=== PATIENT | female | born 1970 | race African-American/Black ===

== ENCOUNTER 2020-11-03 22:59 | Emergency (ER) | payer SELFPAY ==
[2020-11-03 23:18] VITALS: BP 142/104; PULSE 75; RESP 16; TEMP 36.7; O2SAT 98; BMI 29.9
--- NOTE | 2020-11-03 23:35 | ED_ITS ---
HPI - Dental/Oral General: Chief complaint: Dental/Oral Stated complaint: dental pain Time Seen by Provider: 11/03/20 23:29 Source: patient Mode of arrival: ambulatory Limitations: no limitations History of Present Illness: HPI Narrative: Patient is a 50-year-old female who presents to ED today with complaints of a very painful and swollen right lower impacted molar that has been bothering her over the past few days. No fevers or trouble swallowing. MD Complaint: tooth pain Teeth map: 1. Onset (ago): day(s) Duration: constant Severity: severe Relieving factors: nothing Exacerbating factors: nothing Context: history of dental caries Associated symptoms: Reports no associated symptoms; Denies ear or mastoid pain, fever(s) or odynophagia Treatment prior to arrival: topical analgesic and oral analgesic Review of Systems Const: Denies: fever(s), chills, body aches, fatigue or malaise Eyes: Denies: change in vision ENMT: Reports: dental pain; Denies: throat pain, odynophagia, hoarseness, swelling of lips/tongue, bleeding gums or ear or mastoid pain Card: Denies: chest pain GI: Denies: abdominal pain, nausea or vomiting Musc: Denies: neck pain Skin/Breast: Denies: rash Neuro: Denies: headache(s) Physical Exam Const: COMMON NORMALS: no acute distress, average body habitus, patient oriented x3, no limitations, healthy appearing, alert and well nourished HENMT: COMMON NORMALS: normocephalic and atraumatic HEAD & SCALP: normocephalic and atraumatic FACE & SINUS: normal facial exam TEETH & GINGIVA: Yes caries and Yes other (impacted R lower 3rd molar with surrounding gingival and buccal irritation) THROAT: posterior oropharynx normal, tonsils normal and uvula midline Neck/C-Spine: GENERAL: No anterior neck swelling and No submandibular swelling Resp: COMMON NORMALS: normal respiratory effort Neuro: COMMON NORMALS: patient oriented x3 SENSORIUM/ORIENTATION: Yes alert Course Vital Signs: Vital signs: Vital Signs Temperature 98.0 F 11/03/20 23:18 Pulse Rate 75 11/03/20 23:18 Respiratory Rate 16 11/03/20 23:18 Blood Pressure 142/104 11/03/20 23:18 Pulse Oximetry 98 11/03/20 23:18 Discharge Plan Discharge Patient Disposition: Home Clinical Impression: Impacted third molar tooth Condition: Stable Prescriptions: New penicillin V potassium 500 mg tablet 500 mg PO Q8H 7 Days Qty: 21 RF: 0 tramadol 50 mg tablet 50 mg PO Q6H PRN (Reason: pain) Qty: 14 RF: 0 Discharge Orders: Discharge ED (Routine); Ordered 11/03/20 Ordered By: Cheryl Cole Patient Instructions: Dental Caries (ED), Toothache (ED) Coding Level of Care Code ED Director [employer]informatics for Parth Wills
[2020-11-03] MEDS: TRAMadol 50 mg Tablet PO (23:52)
[2020-11-03] MEDS: penicillin v potassium 250 mg Tablet 500 MG PO (23:52)
== END 2020-11-03 23:57 | disposition home or self-care (01) ==
PROVIDERS: Emergency Provider Physician Assistant
DX: K01.1 Impacted teeth (principal)
CPT/HCPCS: 99283

== ENCOUNTER → 2020-12-24 17:27 | Outpatient (BNVA) | payer SELFPAY | PROVIDERS: Visit Provider Nurse Practitioner | DX: R39.9 Unspecified symptoms and signs involving the genitourinary system (principal); R82.90 Unspecified abnormal findings in urine; N93.9 Abnormal uterine and vaginal bleeding, unspecified | CPT/HCPCS: 81000; 87086 ==